=== PATIENT | female | born 1975 | race Hispanic/Latino ===

== ENCOUNTER 2023-09-02 16:41 | Emergency (ER) | payer MEDICAID, OTHER ==
[~2023-09-02] VITALS: Ht 149.9 cm; Wt 77.1 kg
[2023-09-02] MEDS ORDERED: HYDROCODONE/ACETAMINOPHEN 5/325 MG TAB PO ONE (20:30)
[2023-09-02] MEDS ORDERED: KETOROLAC 30MG VIAL (30MG/ML) IM ONE (20:30)
[2023-09-02] MEDS ORDERED: BUPIVACAINE/PF 0.5% 30ML VIAL ONE (21:29)
[2023-09-02] MEDS ORDERED: BUPIVACAINE/PF 0.5% 10ML VIAL IJ ONE (21:30)
[2023-09-02] MEDS ORDERED: IBUP-2071 PO (21:40)
[2023-09-02] MEDS ORDERED: AMOX1TAB16 PO (21:55)
[2023-09-02 22:00] VITALS: BP 136/74; PULSE 88; RESP 18; O2SAT 98
== END 2023-09-02 22:01 | disposition home or self-care (01) ==
LOC: EDH 16:41
DX: K03.81 Cracked tooth (principal); K08.89 Other specified disorders of teeth and supporting structures; I10 Essential (primary) hypertension; Z79.899 Other long term (current) drug therapy; Z98.890 Other specified postprocedural states
CPT/HCPCS: 99283; 96372; J1885; J0665